=== PATIENT | male | born 1955 | race Caucasian/White ===

== ENCOUNTER 2016-11-03 11:49 | Emergency (ER) | payer MEDICARE, MEDICAID ==
[~2016-11-03] VITALS: Ht 177.8 cm; Wt 90.7 kg
[2016-11-03] MEDS ORDERED: METO-302 PO (12:10)
--- NOTE | 2016-11-03 13:18 | NUR ---
Patient discharged to home in stable conditon. Written and verbal after care instructions given. Patient verbalizes understanding of instructions.
== END 2016-11-03 13:20 | disposition home or self-care (01) ==
LOC: ER 11:49
DX: M25.512 Pain in left shoulder (principal); I10 Essential (primary) hypertension; Z88.0 Allergy status to penicillin
CPT/HCPCS: 73030; A4663